=== PATIENT | male | born 1945 | race Caucasian/White ===

== ENCOUNTER 2024-08-26 16:51 | Emergency (ER) | payer MEDICARE, OTHER, SELFPAY ==
[2024-08-26 17:05] VITALS: BP 116/72
[2024-08-26 18:50] VITALS: BMI 29.1
[2024-08-26 18:56] VITALS: BP 119/70
--- NOTE | 2024-08-26 20:34 | ED.GENMED ---
History of Present Illness
General
Chief Complaint: Crisis Evaluation
Source: patient and family
Exam Limitations: none
Time Seen by Provider: 08/26/24 18:19
Nursing documentation reviewed up to this point in time: agreed with
History of Present Illness
History of Present Illness:
Patient presents to ED secondary to continual 'anxiety and panic attack' in the afternoon over the past 2 days. Patient unfortunately lost his spouse of 45 years 3 weeks ago. As he initially had trouble sleeping, he started to use 's Ativan 2
mg tablets. When it was discontinued, patient started to have 'withdrawal symptoms', requiring evaluation at another hospital in [place], where he he was visiting his daughter. He was told that he stopped his medication to abruptly and is
having withdrawal symptoms. He was given IV infusion of Ativan with resolution of his symptoms. Since then, patient has seen his primary care physician, where he is currently on taper dose of prednisone, 0.5 mg 3 times daily -9 AM, 2 PM, and at
bedtime. Patient states that despite this regimen, around 1 PM, he has noted recurrent anxiety symptoms, which resolves in the evening. Denies suicidal or homicidal ideation. Denies loss of appetite. Patient is planning on staying with his son
upon discharge. He also has initial consultation with psychologist tomorrow afternoon.
Review of Systems
Review of Systems
Allergies reviewed?: Yes
All Other Systems: ROS reviewed and negative except as documented in HPI and ROS
Constitutional: Reports no symptoms
EENT: Reports no symptoms
Respiratory: Reports no symptoms
Cardiac: Reports no symptoms
ABD/GI: Reports no symptoms
Musculoskeletal: Reports no symptoms
Skin: Reports no symptoms
Neurological: Reports no symptoms
Psychiatric: Reports anxiety; Denies suicidal
Phy Exam
Physical Exam
Physical Exam:
Physical Exam
General: no apparent distress, not acutely ill. afebrile
Head: nc/at. eomi
Neck: supple. no meningeal signs.
Heart: s1/s2 regular rate and rhythm, no murmur.
Lungs: no acute respiratory distress. clear bilaterally
Abdomen: normal bowel sounds. not tender.
Neuro: alert and oriented x 3. no focal neurological deficits
Skin: no rash
Psychiatric: well kept. interactive and cooperative
Extremities: no edema. no calf tenderness
Course
Orders/Labs/Results
Orders:
Orders
08/26/24 16:53
Crisis Consult Urgent
Reason for Consult: depression
Vital Signs
Initial and Last Documented VS:
Initial Vital Signs
Temp Pulse Resp BP Pulse Ox
97.6 F 76 16 116/72 97
08/26/24 17:05 08/26/24 17:05 08/26/24 17:05 08/26/24 17:05 08/26/24 17:05
Last Documented Vital Signs
Temp Pulse Resp BP Pulse Ox
97.6 F 74 17 125/81 98
08/26/24 17:05 08/26/24 20:44 08/26/24 20:44 08/26/24 20:44 08/26/24 20:44
MDM/Problems Addressed
MDM/Problems Addressed:
Patient evaluated by [facility] parks worker, who provided patient with outpatient resources. Otherwise, patient is well-appearing, without any acute distress. Patient agrees with plan to be discharged home, where he will stay with his son.
Discussed potential adjustment of times when he takes Ativan, to combat his symptoms in the afternoon. Patient will follow-up with psychologist tomorrow afternoon for further evaluation and treatment.
*Critical Care Note
Total Time (30-74mins, 75-104mins- exclusive of procedures): Not Applicable
ED Attending Note
-
Portions of this chart may have been created with voice recognition software.� Occasional wrong word or��sound alike� substitutions may have occurred due to the inherent limitations of voice recognition software.
Discharge Plan
Departure
Patient Disposition: Home (Routine Discharge)
Date of Disposition: 08/26/24
Time of Disposition: 20:35
Patient with high blood pressure during this ER visit?: Yes
Condition: Good
Discharge Problem:
Anxiety
Instructions: Depression, Adult (DC), Anxiety, Adult (DC)
Referrals:
Kalyn Coe MD [Family Provider] -
Activity Restrictions/Additional Instructions:
As discussed, please follow-up with your already scheduled consultation with psychologist tomorrow afternoon for further evaluation and treatment.
Interventions
Interventions:
*Risk Screen - Suicide Last Done: 08/26/24 17:05
*General Assessment Last Done: 08/26/24 18:51
*Neglect/Abuse Screening Last Done: 08/26/24 18:51
*ED- Fall Risk Assessment Last Done: 08/26/24 18:50
*ED COVID-19 Vaccine History Last Done: 08/26/24 18:50
*Nursing Disposition Last Done: 08/26/24 20:45
ED-Psychological Assessment Last Done: 08/26/24 18:53
Discharge Date and Time
Discharge Date/Time: 08/26/24 20:46
Print Language: PASHTO
[2024-08-26 20:44] VITALS: BP 125/81
== END 2024-08-26 20:46 | disposition home or self-care (01) ==
LOC: EMR 16:51
PROVIDERS: EMERGENCY PHYSICIAN Emergency Medicine; FAMILY PHYSICIAN Internal Medicine
DX: F41.9 Anxiety disorder, unspecified (principal)
CPT/HCPCS: 99282